=== PATIENT | male | born 1980 | race African-American/Black ===

== ENCOUNTER 2024-12-10 09:52 | Emergency (ER) | payer BC, SELFPAY ==
[2024-12-10 10:22] VITALS: BP 117/80; PULSE 67; RESP 20; TEMP 36.9; O2SAT 98; BMI 30.1
--- NOTE | 2024-12-10 10:26 | CRLHL7_ITS ---
For Patients: As a result of the Century Cures Act, medical imaging exams and procedure reports are released immediately into your electronic medical record. You may view this report before your referring provider. If you have questions, please contact your health care provider. Indication: Cough, right-sided chest pain Technique: Chest 2 views Comparison: None Findings/Impression: Cardiovascular and mediastinum: Heart size and vasculature are normal in caliber and appearance. Mediastinum is within normal limits. Lungs and pleural spaces: Lungs are clear. No sign of infiltrate or mass. No sign of pleural effusion. No pneumothorax. Bones and soft tissues: No significant findings. Dictated by Wilman Lemus MD @ 12/10/2024 11:10:39 AM (Electronically Signed)
[2024-12-10 10:52] LABS: Appearance Urine Slightly Cloudy (Clear); Bilirubin Urine Negative (Negative); Blood Urine Negative (Negative); Color Urine Dark yellow (Yellow); Glucose Urine Negative (Negative); Ketones Urine Negative (Negative); Leukocyte Esterase Urine Trace (Negative); Nitrite Urine Positive (Negative); Protein Urine Negative (Negative); Urobilinogen Urine 0.2 (0.2-1.0)
[2024-12-10 11:17] LABS: Amorphous Sediment Urine Many; Bacteria Urine Few; RBC Urine 0-2 (0-2); Squamous Epithelial Cell Urine Moderate (None-Few)
[2024-12-10 11:20] LABS: PCR FLU A Negative PCR FLU A (Negative); PCR FLU B Negative PCR FLU B (Negative); PCR RSV Negative PCR RSV (Negative); SARS PCR* Negative SARS-CoV-2 (Negative)
--- NOTE | 2024-12-10 11:45 | ED_ITS ---
HPI - General Adult General Chief complaint: Cough Stated complaint: Not feeling good, back and chest hurt Time Seen by Provider: 12/10/24 11:27 Source: patient Mode of arrival: ambulatory Limitations: no limitations History of Present Illness HPI narrative: 44-year-old male presenting with 2 days of cough. He states he has been coughing so much that his sides hurt. This pain is only present when he is coughing. He is not short of breath. He denies fevers or chills. Cough is nonproductive. Aside from the pain when he coughs, he denies body aches. No significant changes in his appetite. He denies rashes. He denies any diarrhea. He denies any urinary symptoms such as frequency, urgency or dysuria. No suprapubic discomfort. No changes in the color or scent of his urine. Patient does smoke. Does not take any medications. Related Data Home Medications ?Medication ?Instructions ?Recorded ?Confirmed No Known Home Medications 12/10/24 12/10/24 Allergies Allergy/AdvReac Type Severity Reaction Status Date / Time Penicillins Allergy Intermediate Unknown Verified 12/10/24 10:21 Review of Systems Status of ROS: Reports: 10 or more systems reviewed and unremarkable except as noted in History and below Exam Narrative: Exam Narrative: Well-nourished well-developed patient in no acute distress. Alert and oriented. Answers questions appropriately. Mood and affect are appropriate. Thoughts are goal oriented and rational. No tangential or magical thinking noted. Patient speaks in full sentences without needing to catch his breath. HEENT: Normocephalic atraumatic. Pupils are equally round reactive to light. Extraocular muscles are intact. Conjunctivae are moist without any icterus noted. Moist mucous membranes. Posterior pharynx is normal. Neck is soft without any lymphadenopathy or thyromegaly. No masses are appreciated. Cardiovascular: Heart is regular rate and rhythm S1 and S2 are present without any murmurs. Lungs: Clear to auscultation bilaterally no wheezes rhonchi or rales are appreciated. Patient takes deep breaths without any discomfort. Abdomen: Soft and nontender nondistended with normal bowel sounds. No CVA tenderness. Skin: Well perfused without any obvious rashes. Const: Vital Signs, click to edit/add: Vital Signs - 24 hr 12/10/24 10:22 Temperature 98.5 F Pulse Rate [Pulse Oximeter] 67 Respiratory Rate 20 Blood Pressure [Ri ght Upper Arm] 117/80 Pulse Oximetry 98 Oxygen Delivery Me thod Room Air Course Course ED Course: Triple swabs negative. Chest x-ray, read by me, does not show any acute pathology. We had quite a wait in the emergency department today because the patient was complaining of side pain a UA was done. This was a poor specimen and a dirty catch. Given that the patient is not having any urinary symptoms or fevers, I do not think that he needs treatment at this time. Vital Signs Vital signs: Initial Vital Signs Temperature 98.5 F 12/10/24 10:22 Temperature Source Temporal Artery Scan 12/10/24 10:22 Pulse Rate 67 12/10/24 10:22 Respiratory Rate 20 12/10/24 10:22 Blood Pressure 117/80 12/10/24 10:22 Blood Pressure Mean 92 12/10/24 10:22 Blood Pressure Position Sitting 12/10/24 10:22 Pulse Oximetry 98 12/10/24 10:22 Oxygen Delivery Method Room Air 12/10/24 10:22 Vital Signs Temperature 98.5 F 12/10/24 10:22 Pulse Rate 67 12/10/24 10:22 Respiratory Rate 20 12/10/24 10:22 Blood Pressure 117/80 12/10/24 10:22 Pulse Oximetry 98 12/10/24 10:22 Oxygen Delivery Method Room Air 12/10/24 10:22 Temperature 98.5 F 12/10/24 10:22 Pulse Rate 67 12/10/24 10:22 Respiratory Rate 20 12/10/24 10:22 Blood Pressure 117/80 12/10/24 10:22 Pulse Oximetry 98 12/10/24 10:22 Oxygen Delivery Method Room Air 12/10/24 10:22 Medical Decision Making MDM Narrative Medical decision making narrative: 44-year-old male with a URI. We discussed symptomatic treatment and reasons for returning to the ER. Lab Data Lab results reviewed: Yes I reviewed the patient's lab results Labs: Lab Results 12/10/24 Range/Units 10:30 Urine Color Dark yellow (Yellow) Urine Appearance Slightly Cloudy A (Clear) Urine pH 6.0 (5.0-8.5) Ur Specific [place] 1.020 (1.000-1.030) Urine Protein Negative (Negative) Urine Glucose (UA) Negative (Negative) Urine Ketones Negative (Negative) Urine Blood Negative (Negative) Urine Nitrite Positive A (Negative) Urine Bilirubin Negative (Negative) Urine Urobilinogen 0.2 (0.2-1.0) Ur Leukocyte Esterase Trace A (Negative) Urine RBC 0-2 (0-2) Urine WBC 10-25 A (0-5) Ur Squamous Epith Cells Moderate A (None-Few) Amorphous Sediment Many A (None) Urine Bacteria Few A (None) SARS-CoV-2 (PCR) Negative SARS-CoV-2 (Negative) Influenza Type A (PCR) Negative PCR FLU A (Negative) Influenza Type B (PCR) Negative PCR FLU B (Negative) RSV (PCR) Negative PCR RSV (Negative) Imaging Data Chest x-ray: Attestation: I have reviewed the pertinent imaging results. Radiologist's impression: Technique: Chest 2 views Comparison: None Findings/Impression: Cardiovascular and mediastinum: Heart size and vasculature are normal in caliber and appearance. Mediastinum is within normal limits. Lungs and pleural spaces: Lungs are clear. No sign of infiltrate or mass. No sign of pleural effusion. No pneumothorax. Bones and soft tissues: No significant findings. Discharge Plan Discharge Clinical Impression: URI (upper respiratory infection), Cough Patient Disposition: Home, Self-Care Condition: Stable Instructions: Upper Respiratory Infection (DC) Additional Instructions: Your tests for influenza, COVID and RSV were all negative today. Your chest x- ray was clear, there is no evidence of pneumonia. You have an upper respiratory infection and cough which is likely viral in nature. You will be ill for approximately 1 week and will start to get better. If you develop difficulty breathing or worsening symptoms then you should return to the ER. Prescriptions: No Action No Known Home Medications Follow Up/Referrals: Provider,Not a Local [Primary Care Provider] - Stand Alone Forms: [employer] Info Instructions
--- OUTSIDE RECORDS SUMMARY | 2024-12-10 12:19 | XMS_ITS | Clinical Summary ---
Author Organization [facility] Address [address] [place] [address] Care Team Providers Care Manual Winder Name Role Phone No Primary/Referring, Phy Primary Care Provider Unavailable Source Comments You are receiving this document as you are listed as the primary care provider,follow-up provider, or the patient has been referred to you for consultation.This is in compliance with the Medicare and[facility] E[facility] Incentive Program,which states Providers who transition their patient to another setting of careor provider of care or refers their patient to another provider of care shouldprovide summary care record for each transition of care or referral. [facility] Allergies Active Allergy Reactions Criticality Noted Date Comments Penicillins 06/06/2009 PN: LW Reaction: HIVES Penicillins Unknown 08/26/2020 As a kid Medications Medication Sig Dispensed Refills Start Date End Date Status diclofenac (VOLTAREN) 75 MG enteric coated tablet Take 1 Tablet (75 mg) by mouth two times daily as needed. 30 Tablet 1 08/12/2023 Active Active Problems Problem Noted Date Diagnosed Date Laceration of right hand without foreign body Overview (08/26/2020): Added automatically from request for surgery [id number] Immunizations Name Administration Dates Next Due H1n1 Miv [employer] 3+ Yr (Injected) 09/25/2009 TDAP (BOOSTRIX) 06/07/2013 Tdap 08/26/2020,06/07/2013 Family History Medical History Relation Name Comments Cancer Negative Family History High Cholesterol Negative Family History Hypertension Negative Family History Social History Tobacco Use Types Packs/Day Years Used Date Smoking Tobacco: Every Day Cigarettes Smokeless Tobacco: Never Comments:Smoking History Pac ks/day: Alcohol Use Standard Drinks/Week Comments Yes 0 (1 standard drink = 0.6 oz pur e alcohol) rare Sex and Gender Information Value Date Recorded Sex Assigned at Not on file Gender Identity Not on file Sexual Orientation Not on file Last Filed Vital Signs Vital Sign Reading Time Taken Comments Blood Pressure 135/93 06/26/2021 11:46 AM CDT Pulse 72 06/26/2021 11:46 AM CDT Temperature 36.4 C (97.5 F) 08/12/2023 9:32 AM CDT Respiratory Rate 16 06/26/2021 11:46 AM CDT Oxygen Saturation 98% 06/26/2021 11:46 AM CDT Inhaled Oxygen Concentration - - Weight 93 kg (205 lb) 08/12/2023 9:32 AM CDT Height 180.3 cm (5' 11) 08/12/2023 9:32 AM CDT Body Mass Index 28.59 08/12/2023 9:32 AM CDT Plan of Treatment Health Maintenance Due Date Last Done Comments Colon Cancer Screening Plan Due 1979 Hep C Screening (Preventive Services) 1979 PSA Screening Discussion 1979 Pneumococcal (1 - PCV) 1985 HIV Screening (Preventive Services) 1995 HepB (1) 1998 Cholesterol 2014 Adult Preventive Visit 05/16/2016 05/16/2015 COVID-19 Vaccine (1 - season) 2024 Influenza (#1) 2024 Zoster/Shingles (1 of 2) 2029 DTaP/Tdap/Td (5 - Tdap) 08/26/2030 08/26/20 20, 04/20/2020, 06/07/2013, Additional history exists HPV Vaccine Aged Out No longer eligi ble based on patient's age to complete this topic HepA Aged Out No longer eligi ble based on patient's age to complete this topic Hib Aged Out No longer eligi ble based on patient's age to complete this topic IPV (Polio) Aged Out No longer eligi ble based on patient's age to complete this topic MCV4 Aged Out No longer eligi ble based on patient's age to complete this topic Advance Directives * Full Code (Latest Code Status on File) Date Activated Date Inactivated Comments 08/26/2020 9:21 PM 08/28/2020 2:59 PM * Full Code Date Activated Date Inactivated Comments 08/08/2015 12:57 PM 08/08/2015 5:32 PM Care Teams Manual Winder Relationship Specialty Start Date End Date No Primary/Referring, Phy PCP - General 08/26/20
== END 2024-12-10 12:23 | disposition home or self-care (01) ==
LOC: ED 12:17
PROVIDERS: Emergency Provider Family Medicine
DX: J06.9 Acute upper respiratory infection, unspecified (principal); R05.9 Cough, unspecified
CPT/HCPCS: 71046; 81001; 87086; 87631; 99283; 99284